=== PATIENT | male | born 1995 | race Caucasian/White ===

== ENCOUNTER 2019-07-21 12:56 | Emergency (ER) | payer MEDICAID, OTHER ==
[~2019-07-21] VITALS: Ht 177.8 cm; Wt 95.3 kg
[2019-07-21] MEDS ORDERED: ACETAMINOPHEN/CODEINE#3 (300/30mg) TAB PO ONE (13:45)
[2019-07-21 15:40] VITALS: BP 126/85
[2019-07-21] MEDS ORDERED: KETOROLAC TROMETH 60MG/2ML VIAL IM ONE (16:15)
== END 2019-07-21 17:18 | disposition home or self-care (01) ==
LOC: ER 13:09
DX: S00.11XA Contusion of right eyelid and periocular area, initial encounter (principal); R07.89 Other chest pain; R10.9 Unspecified abdominal pain; M54.2 Cervicalgia; R20.0 Anesthesia of skin; R11.0 Nausea; Y04.0XXA Assault by unarmed brawl or fight, initial encounter; Y93.89 Activity, other specified; Y92.89 Other specified places as the place of occurrence of the external cause; Y99.8 Other external cause status
CPT/HCPCS: 70450; 70486; 72125; 74176; 96372; 99284; J1885